=== PATIENT | female | born 1950 | race Caucasian/White ===

== ENCOUNTER 2020-08-09 10:32 | Emergency (ER) | payer MEDICARE, OTHER, SELFPAY ==
--- NOTE | 2020-08-09 10:41 | ED.EXTPRO ---
HPI - Extremity Problem General Chief complaint: Extremity Problem,Nontraumatic Stated complaint: right wrist pain Time Seen by Provider: 08/09/20 10:51 Source: patient and RN notes reviewed Mode of arrival: ambulatory Limitations: no limitations History of Present Illness HPI Narrative: 70-year-old female presents with concern for right wrist pain. Reports pain and some swelling for 3 to 4 days. Reports she had a similar instance approximately 2 months ago and symptoms improved without intervention. Reports she took one ibuprofen tablet yesterday that improved the swelling and pain. She denies injury, trauma. Denies bruising, redness. MD Complaint: extremity pain Related Data Home Medications Medication Instructions Recorded Confirmed lisinopril 10 mg tablet 10 mg PO DAILY 05/19/20 08/09/20 omega-3 fatty acids 1,000 mg 1,000 mg PO DAILY 05/19/20 08/09/20 capsule vitamin B complex 1 tablet PO DAILY 05/19/20 08/09/20 Allergies Allergy/AdvReac Type Severity Reaction Status Date / Time No Known Allergies Allergy Verified 08/09/20 10:36 Review of Systems Review of Systems: Narrative: CONSTITUTIONAL: Denies malaise, chills, sweats, or fever. CARDIOVASCULAR: Denies chest pain, palpitations, or edema. RESPIRATORY: Denies cough or dyspnea. SKIN: Denies bruising, redness MUSCULOSKELETAL: Reports right wrist pain, swelling. Reports right decreased bit sander strength NEUROLOGIC: Denies numbness All systems reviewed & are unremarkable except as noted in HPI and below PMFSH Family History Family History (Updated 07/29/14 @ 07:13 by DOCTOR UNKNOWN) Father Hypertension Patient's father is Mother Hypertension Sibling Hypertension Family history of coronary artery disease Social History Social History Second hand tobacco smoke exposure: No Alcohol intake: never Gender identity (if verbalized by the patient): Female Comments At time of signature, agree with nursing past medical, surgical, social and family history. There is no relevant family history pertinent to the presenting complaint Exam Narrative: Exam Narrative: GENERAL: Well-appearing, well-nourished, and in no acute distress. HEAD: Normocephalic, atraumatic. EYES: PERRLA, conjunctivae clear NECK: Supple. CHEST: Speaks in full sentences. No respiratory distress. HEART: Regular rate and rhythm. Normal and equal peripheral pulses. EXTREMITIES: Right wrist, digits have normal strength and sensation, normal range of motion. No edema or ecchymosis. 5/5 strength with wrist and digit flexion and extension. Normal sensation with sensitivity to light touch and pain. No open wounds, no skin tenting, no devitalized tissue or atrophy, no trophic changes, no obvious deformity, alignment normal, no point tenderness, nearby joints and structures intact. Distal pulses palpable and equal bilaterally, skin warm, dry, pink. Capillary refill less than 3 seconds. SKIN: Warm, dry, no rash. NEURO: Alert and oriented x3. PSYCH: Normal mood and affect Course Course Emergency Course: Patient is aware of diagnosis, understands and agrees to treatment plan. Anticipatory guidance given. Patient agrees to follow-up as directed and is aware of reasons to seek care at the emergency department. Portions of this record may have been created with voice recognition software Vital Signs Vital signs: Vital Signs Temperature 99.1 F 08/09/20 10:51 Pulse Rate 87 08/09/20 10:51 Respiratory Rate 16 08/09/20 10:51 Blood Pressure 122/68 08/09/20 10:51 Pulse Oximetry 98 08/09/20 10:51 Temperature 99.1 F 08/09/20 10:51 Pulse Rate 87 08/09/20 10:51 Respiratory Rate 16 08/09/20 10:51 Blood Pressure 122/68 08/09/20 10:51 Pulse Oximetry 98 08/09/20 10:51 Reviewed. MDM - Extremity (Nontraumatic) MDM Narrative Medical decision making narrative: Patients or pain is consistent with musculoskeletal etiology. No signs of neurologic
[2020-08-09 10:51] VITALS: BP 122/68; PULSE 87; RESP 16; TEMP 37.3; O2SAT 98
== END 2020-08-09 11:10 | disposition home or self-care (01) ==
PROVIDERS: Emergency Provider Nurse Practitioner; PCP Internal Medicine
DX: M77.9 Enthesopathy, unspecified (principal); E78.00 Pure hypercholesterolemia, unspecified; I10 Essential (primary) hypertension; E89.0 Postprocedural hypothyroidism
CPT/HCPCS: 99212; G0463

== ENCOUNTER 2023-01-21 13:58 | Outpatient (CLI) | payer MEDICARE, OTHER, SELFPAY ==
--- NOTE | ~2023-01-21 | US_ITS ---
EXAMINATION: US art doppler w press PATRICK BELL DATE: 01/21/2023 15:57 INDICATION: Peripheral vascular disease, unspecified. TECHNIQUE: Segmental pressures and plethysmographic and Doppler waveforms of the brachial and lower e xtremity arteries were obtained. COMPARISON: None. FINDINGS: Right and left brachial artery pressures of 94 mm Hg and 80 mm Hg, respectively, are concordant (norm al difference <= 30 mmHg). The right high-thigh pressure index is 0.68 (normal > 1.2). The right ankle-brachial index (LAUREN) is 0 .69 (normal >= 0.9-1.0). The right great toe-brachial index (TBI) is 1.32 (normal >= 0.65). The right lower extremity segmental pressure gradients (normal gradients <= 20-30 mmHg between adjacent levels on the same leg or the same levels on the two legs). Arterial Doppler waveforms are biphasic from co mmon femoral artery to the ankle. The left high-thigh pressure index is 0.61. The left LAUREN is 0.71. The left TBI is 0.20. The left lowe r extremity segmental pressure gradients are normal. Arterial Doppler waveforms are biphasic from com mon femoral artery to the ankle. IMPRESSION: 1. Moderately decreased ABIs, consistent with arterial occlusive disease, likely predominantly in the aortoiliofemoral distribution. Reviewed, dictated and finalized at location [facility] [employer] IMPRESSION: 1. Moderately decreased ABIs, consistent with arterial occlusive disease, likel y predominantly in the aortoiliofemoral distribution.
== END 2023-01-21 13:59 | disposition home or self-care (01) ==
PROVIDERS: PCP Internal Medicine; Visit Provider Internal Medicine
DX: I73.9 Peripheral vascular disease, unspecified (principal)
CPT/HCPCS: 93923

== ENCOUNTER 2025-05-26 21:55 | Inpatient (IN) | payer MEDICARE, OTHER, SELFPAY ==
--- NOTE | ~2025-05-26 | CT_ITS ---
CT of the Abdomen and Pelvis: Indication: Abdominal pain Technique: 2.5 mm axial scans were obtained through the abdomen and pelvis following intravenous adm inistration of 100 cc of Omnipaque 350. Dose reduction technique was used on this scan by utilizing a utomated exposure control and iterative reconstruction technique. The dose-length product (DLP) was 3 56.57 mGy-cm. Findings: Scans through the lung bases are unremarkable. The liver, spleen, pancreas, gallbladder, adrenals and kidneys are within normal limits. There are at herosclerotic calcifications of the aorta. No lymphadenopathy. No bowel obstruction or bowel wall thickening. There is no evidence to suggest acute appendicitis. Images through the pelvis were performed. Urinary bladder unremarkable. No pelvic mass seen. No ascit es. Impression: No significant abnormalities seen. Reviewed, dictated and finalized at [facility]. Impression: No significant abnormalities seen.
[2025-05-26 22:18] VITALS: BP 107/47; PULSE 71; RESP 16; TEMP 36.6; O2SAT 96
[2025-05-27] VITALS (28 sets, daily range): BP systolic 107–155; BP diastolic 49–75; PULSE 57–83; RESP 10–20; TEMP 36.4–36.6; O2SAT 91–100; BMI 20.8
--- NOTE | 2025-05-27 00:30 | ED_ITS ---
HPI - Nausea/Vomiting/Diarrhea General Chief complaint: Nausea/Vomiting/Diarrhea <Meryl De Paz PA-C - Last Filed: 05/27/25 03:01> Stated complaint: n/v/d <Meryl De Paz PA-C - Last Filed: 05/27/25 03:01> Time Seen by Provider: 05/27/25 00:18 <Meryl De Paz PA-C - Last Filed: 05/27/25 03:01> History of Present Illness HPI Narrative: 74-year-old female with history of hyperlipidemia, hypothyroidism, hypertension presents to the emergency department for nausea, vomiting and diarrhea that started at 2:00 p.m. today. Patient states she was eating a roast beef sandwich and took a few bites when she began projectile vomiting followed by several episodes of diarrhea. She has been having difficulty eating and hydrating since. She reports intermittent sharp abdominal pains in her periumbilical region. She denies dysuria, hematuria, fevers, chest pain or shortness of breath. Denies melena, hematochezia, hematemesis or coffee-ground emesis. Denies recent antibiotic use, recent surgeries or hospitalizations, recent sick contacts, recent travel. <Meryl De Paz PA-C - Last Filed: 05/27/25 03:01> Related Data Allergies/Adverse reactions: Allergies Allergy/AdvReac Type Severity Reaction Status Date / Time No Known Allergies Allergy Verified 05/26/25 22:21 <Meryl De Paz PA-C - Last Filed: 05/27/25 03:01> Review of Systems 2 Review of Systems: All systems reviewed & are unremarkable except as noted in HPI and below <Meryl De Paz PA-C - Last Filed: 05/27/25 03:01> FOR[facility]LY [facility], [facility] Past Medical History Medical History: Medical History BMI 21.0-21.9, adult Pure hypercholesterolemia, unspecified Pure hypercholesterolemia Other fatigue Gastro-esophageal reflux disease without esophagitis Dietary counseling and surveillance (02/27/17) Cough Chronic pain of right knee Cellulitis of face Annual physical exam <Meryl De Paz PA-C - Last Filed: 05/27/25 03:01> Family History Family History: Family History Father Hypertension Mother Hypertension Sibling Hypertension Family history of coronary artery disease <Meryl De Paz PA-C - Last Filed: 05/27/25 03:01> Social History Social History: Social History Smoking status: Current every day smoker Second hand tobacco smoke exposure: Yes Alcohol intake: never Substance use: never Substance use type: does not use Do You Feel Safe in your Home?: Yes Lack of Transportation: No Lack of Food: Never True Current Housing: I Have Housing Concerned About Future Housing: No Difficulty Paying Gas/Electric Bills: No Difficulty Paying for Meds: No Currently Unemployed: No Education: High School Diploma/GED Difficulty w/ Childcare or Family Care: No Living arrangements: alone Occupation/Education: retired Additional occupation/education comments: [employer] Gender identity (if verbalized by the patient): Female <Meryl De Paz PA-C - Last Filed: 05/27/25 03:01> Exam 2 Narrative: GENERAL: Well-appearing, well-nourished, and in no acute distress. HEAD: Normocephalic, atraumatic. EYES: EOMI. ENT: Nares clear, no rhinorrhea or epistaxis. Mucous membranes dry NECK: Supple. CHEST: Clear to auscultation. No respiratory distress. HEART: Regular rate and rhythm. No murmur heard. Normal peripheral pulses. ABDOMEN: Quiet bowel sounds. Abdomen soft with mild tenderness in the left lower quadrant. No rebound, guarding or rigidity. No CVA tenderness EXTREMITIES: Normal range of motion. No edema. SKIN: Warm, dry, no rash. NEURO: No focal deficits. Alert and oriented x3 <Meryl De Paz PA-C - Last Filed: 05/27/25 03:01> Course Vital Signs Vital signs: Vital Signs Temperature 98 F 05/26/25 22:18 Pulse Rate 71 05/26/25 22:18 Respiratory Rate 16 05/26/25 22:18 Blood Pressure 107/47 L 05/26/25 22:18 Pulse Oximetry 96 05/26/25 22:18 Oxygen Delivery Room Air 05/26/25 22:18 Temperature 98 F 05/26/25 22:18 Pulse Rate 69 05/27/25 04:45 Respiratory Rate 14 05/27/25 04:45 Blood Pressure 109/51 L 05/27/25 04:45 Pulse Oximetry 93 05/27/25 04:45 Oxygen Delivery Room Air 05/27/25 00:29 <Meryl De Paz PA-C - Last Filed: 05/27/25 03:01> Vital Signs Temperature 98 F 05/26/25 22:18 Pulse Rate 71 05/26/25 22:18 Respiratory Rate 16 05/26/25 22:18 Blood Pressure 107/47 L 05/26/25 22:18 Pulse Oximetry 96 05/26/25 22:18 Oxygen Delivery Room Air 05/26/25 22:18 Temperature 98 F 05/26/25 22:18 Pulse Rate 69 05/27/25 04:45 Respiratory Rate 14 05/27/25 04:45 Blood Pressure 109/51 L 05/27/25 04:45 Pulse Oximetry 93 05/27/25 04:45 Oxygen Delivery Room Air 05/27/25 00:29 <Chaim Kincaid MD - Last Filed: 05/27/25 04:56> MDM - Nausea/Vomiting/Diarrhea MDM Narrative Medical decision making narrative: 74-year-old female presents emergency department for N/V/D that started at 2:00 p.m. today after eating a roast beef sandwich. See HPI for further history. Vitals with soft blood pressure 107/47, patient is dry appearing on exam. Fluids started. Patient is afebrile and nontoxic appearing. Abdomen is soft with mild tenderness in the left lower quadrant. No rebound or rigidity. CBC shows no leukocytosis or anemia. Chemistries remarkable for signs of dehydration including hyponatremia 125, hyperkalemia 5.3, hypochloremia of 94, bicarb of 20 with normal anion gap, BUN of 18 creatinine 1.01. Patient was given 2 L of fluids. Lactic acid is within normal limits. Lipase is normal. Pending CT abdomen pelvis at time of sign-out to Dr. Kincaid. Plans for admission for IV hydration and management of electrolyte derangements. <Meryl De Paz PA-C - Last Filed: 05/27/25 03:01> 74-year-old female presents emergency department for N/V/D that started at 2:00 p.m. today after eating a roast beef sandwich. See HPI for further history. Vitals with soft blood pressure 107/47, patient is dry appearing on exam. Fluids started. Patient is afebrile and nontoxic appearing. Abdomen is soft with mild tenderness in the left lower quadrant. No rebound or rigidity. CBC shows no leukocytosis or anemia. Chemistries remarkable for signs of dehydration including hyponatremia 125, hyperkalemia 5.3, hypochloremia of 94, bicarb of 20 with normal anion gap, BUN of 18 creatinine 1.01. Patient was given 2 L of fluids. Lactic acid is within normal limits. Lipase is normal. Pending CT abdomen pelvis at time of sign-out to Dr. Kincaid. Plans for admission for IV hydration and management of electrolyte derangements. --- CT scan showed evidence diverticulosis without diverticulitis. Case discussed with hospitalist. Patient will be admitted for IV antibiotics for urinary tract infection rehydration and following of her hyponatremia and hyperkalemia <Chaim Kincaid MD - Last Filed: 05/27/25 04:56> Lab Data Result diagrams: 05/27/25 00:44 05/27/25 00:44 <Meryl De Paz PA-C - Last Filed: 05/27/25 03:01> Labs: Lab Results 05/27/25 05/27/25 05/27/25 Range/Units 00:44 02:17 02:19 WBC 9.7 (4.5-10.0) K/mm3 RBC 4.54 (4.2-5.4) M/mm3 Hgb 13.5 (12.0-15.0) g/dL Hct 41.0 (37.0-47.0) % MCV 90.3 (80-100) fl MCH 29.7 (26-34) pg MCHC 32.9 (32-36) g/dl RDW 12.7 (11.5-14.5) % Plt Count 230 (150-375) k/mm3 MPV 9.1 (7.4-10.4) fl Immature Gran % (Auto) 1.5 H (0-0.5) % Neut % (Auto) 88.2 H (45.5-73.1) % Lymph % (Auto) 4.4 L (18.3-44.2) % Cloud % (Auto) 5.0 (2.6-8.5) % Eos % (Auto) 0.7 (0-4.4) % Baso % (Auto) 0.2 (0.2-1.2) % Lymph # (Auto) 0.43 L (0.9-3.2) K/mm3 Cloud # (Auto) 0.5 (0.1-0.6) K/mm3 Eos # (Auto) 0.1 (0-0.3) K/mm3 Baso # (Auto) 0.0 (0.0-0.1) K/mm3 Abs Immat Gran (auto) 0.15 H (0.00-0.031) K/mm3 Absolute Neuts (auto) 8.6 H (1.3-6.7) K/mm3 Absolute Nucleated RBC 0.000 (0.0-0.012) K/mm3 Nucleated RBC % 0.0 (0.0-0.2) % Sodium 125 L (137-145) mmol/L Potassium 5.3 H (3.4-5.0) mmol/L Chloride 94 L (98-107) mmol/L Carbon Dioxide 20 L (22-30) mmol/L Anion Gap 11 (4-12) mmol/L BUN 18 H (7-17) mg/dL Creatinine 1.01 H (0.7-1.0) mg/dL Estim Creat Clear Calc Not Reportable Estimated GFR 53 L (59 - ) Glucose 135 H (65-110) mg/dL Lactic Acid 1.2 (0.7-2.0) mmol/L Calcium 9.4 (8.4-10.2) mg/dL Total Bilirubin 1.1 (0.2-1.3) mg/dL AST 46 H (14-36) U/L ALT 29 (6-35) U/L Alkaline Phosphatase 83 (38-126) U/L Total Protein 7.7 (6.3-8.2) g/dL Albumin 4.4 (3.5-5.1) g/dL Lipase 107 (23-300) U/L Urine Color Yellow (Yellow) Urine Appearance Cloudy H (Clear) Urine pH 7.0 (5.0-9.0) Ur Specific [place] 1.015 (1.001-1.035) Urine Protein Trace (Negative) mg/dL Urine Glucose (UA) Negative (Negative) mg/dL Urine Ketones Negative (Negative) mg/dL Ur Blood (Man) Negative (Negative) Urine Nitrate Positive H (Negative) Urine Bilirubin Negative (Negative) Urine Urobilinogen 0.2 (<2.0) mg/dL Add Ur Microanalysis Reviewed Leukocyte Esterase Rfl 3+ H (Negative) JEWELS/UL Urine RBC 6-10 H (0-2) /hpf Urine WBC 21-50 H (0-3) /hpf Ur Squamous Epith Cells Few (Few) /hpf Urine Bacteria 4+ /hpf Urine Casts 0-2 <Meryl De Paz PA-C - Last Filed: 05/27/25 03:01> Lab Results 05/27/25 05/27/25 05/27/25 Range/Units 00:44 02:17 02:19 WBC 9.7 (4.5-10.0) K/mm3 RBC 4.54 (4.2-5.4) M/mm3 Hgb 13.5 (12.0-15.0) g/dL Hct 41.0 (37.0-47.0) % MCV 90.3 (80-100) fl MCH 29.7 (26-34) pg MCHC 32.9 (32-36) g/dl RDW 12.7 (11.5-14.5) % Plt Count 230 (150-375) k/mm3 MPV 9.1 (7.4-10.4) fl Immature Gran % (Auto) 1.5 H (0-0.5) % Neut % (Auto) 88.2 H (45.5-73.1) % Lymph % (Auto) 4.4 L (18.3-44.2) % Cloud % (Auto) 5.0 (2.6-8.5) % Eos % (Auto) 0.7 (0-4.4) % Baso % (Auto) 0.2 (0.2-1.2) % Lymph # (Auto) 0.43 L (0.9-3.2) K/mm3 Cloud # (Auto) 0.5 (0.1-0.6) K/mm3 Eos # (Auto) 0.1 (0-0.3) K/mm3 Baso # (Auto) 0.0 (0.0-0.1) K/mm3 Abs Immat Gran (auto) 0.15 H (0.00-0.031) K/mm3 Absolute Neuts (auto) 8.6 H (1.3-6.7) K/mm3 Absolute Nucleated RBC 0.000 (0.0-0.012) K/mm3 Nucleated RBC % 0.0 (0.0-0.2) % Sodium 125 L (137-145) mmol/L Potassium 5.3 H (3.4-5.0) mmol/L Chloride 94 L (98-107) mmol/L Carbon Dioxide 20 L (22-30) mmol/L Anion Gap 11 (4-12) mmol/L BUN 18 H (7-17) mg/dL Creatinine 1.01 H (0.7-1.0) mg/dL Estim Creat Clear Calc Not Reportable Estimated GFR 53 L (59 - ) Glucose 135 H (65-110) mg/dL Lactic Acid 1.2 (0.7-2.0) mmol/L Calcium 9.4 (8.4-10.2) mg/dL Total Bilirubin 1.1 (0.2-1.3) mg/dL AST 46 H (14-36) U/L ALT 29 (6-35) U/L Alkaline Phosphatase 83 (38-126) U/L Total Protein 7.7 (6.3-8.2) g/dL Albumin 4.4 (3.5-5.1) g/dL Lipase 107 (23-300) U/L Urine Color Yellow (Yellow) Urine Appearance Cloudy H (Clear) Urine pH 7.0 (5.0-9.0) Ur Specific [place] 1.015 (1.001-1.035) Urine Protein Trace (Negative) mg/dL Urine Glucose (UA) Negative (Negative) mg/dL Urine Ketones Negative (Negative) mg/dL Ur Blood (Man) Negative (Negative) Urine Nitrate Positive H (Negative) Urine Bilirubin Negative (Negative) Urine Urobilinogen 0.2 (<2.0) mg/dL Add Ur Microanalysis Reviewed Leukocyte Esterase Rfl 3+ H (Negative) JEWELS/UL Urine RBC 6-10 H (0-2) /hpf Urine WBC 21-50 H (0-3) /hpf Ur Squamous Epith Cells Few (Few) /hpf Urine Bacteria 4+ /hpf Urine Casts 0-2 <Chaim Kincaid MD - Last Filed: 05/27/25 04:56> Discharge Plan Discharge Clinical Impression: Dehydration, Acute hyponatremia, Acute hyperkalemia, Acute UTI, Nausea & vomiting <Meryl De Paz PA-C - Last Filed: 05/27/25 03:01> Patient Disposition: Still a Patient <JIMBO Dale Last Filed: 05/27/25 03:01> Condition: Stable <JIMBO Dale Last Filed: 05/27/25 03:01> Patient Language: Japanese <JIMBO Dale Last Filed: 05/27/25 03:01> Prescriptions: No Action rosuvastatin 20 mg tablet 20 mg PO DAILY Qty: 90 3RF lisinopril 20 mg tablet 20 mg PO DAILY Qty: 90 3RF glucose 4 gram tablet,chewable 4 g PO Q15M PRN (Reason: hypoglycemia) Qty: 30 2RF Rx Instructions: until symptoms of low blood sugar are controlled levothyroxine [Levo-T] 50 mcg tablet 50 mcg PO DAILY Qty: 90 2RF <JIMBO Dale Last Filed: 05/27/25 03:01> Follow-up/Referrals: UNKNOWN,DOCTOR [Non-Staff] - <JIMBO Dale Last Filed: 05/27/25 03:01>
[2025-05-27] MEDS: ONDANSETRON INJ 4 MG/2 ML VIAL IV PUSH (00:47)
[2025-05-27] MEDS: SODIUM CHLORIDE 0.9% IV 1,000 ML 999 ML IV CONT ×2 (00:47→01:17)
[2025-05-27] MEDS: FAMOTIDINE 20 MG/2 ML VIAL IV PUSH (00:48)
[2025-05-27 01:00] LABS: Basophils Percent Auto 0.2 % (0.2-1.2); Eosinophils Absolute Auto 0.1 K/mm3 (0-0.3); Eosinophils Percent Auto 0.7 % (0-4.4); Hemoglobin 13.5 g/dL (12.0-15.0); Immature Granulocyte Absolute 0.15 K/mm3 (0.00-0.031); Immature Granulocyte Percent A 1.5 % (0-0.5); Lymphocytes Absolute Auto 0.43 K/mm3 (0.9-3.2); Lymphocytes Percent Auto 4.4 % (18.3-44.2); Mean Corpuscular HGB Conc 32.9 g/dl (32-36); Mean Corpuscular Hemoglobin 29.7 pg (26-34); Mean Corpuscular Volume 90.3 fl (80-100); Mean Platelet Volume 9.1 fl (7.4-10.4); Monocytes Absolute Auto 0.5 K/mm3 (0.1-0.6); Neutrophils Absolute Auto 8.6 K/mm3 (1.3-6.7); Neutrophils Percent Auto 88.2 % (45.5-73.1); Platelet Count Result 230 k/mm3 (150-375); Red Blood Count 4.54 M/mm3 (4.2-5.4); Red Cell Distribution Width 12.7 % (11.5-14.5); White Blood Count 9.7 K/mm3 (4.5-10.0)
[2025-05-27 01:05] LABS: Alanine Aminotransferase 29 U/L (6-35); Albumin Level 4.4 g/dL (3.5-5.1); Alkaline Phosphatase 83 U/L (38-126); Anion Gap 11 mmol/L (4-12); Aspartate Amino Transferase 46 U/L (14-36); Bilirubin,Total 1.1 mg/dL (0.2-1.3); Blood Urea Nitrogen 18 mg/dL (7-17); Calcium 9.4 mg/dL (8.4-10.2); Carbon Dioxide 20 mmol/L (22-30); Chloride 94 mmol/L (98-107); Estimated Glomerular Filt Rate 53; Glucose 135 mg/dL (65-110); Lipase 107 U/L (23-300); Potassium 5.3 mmol/L (3.4-5.0); Sodium 125 mmol/L (137-145); Total Protein 7.7 g/dL (6.3-8.2)
[2025-05-27 02:33] LABS: Lactic Acid Reflex 1.2 mmol/L (0.7-2.0)
[2025-05-27 02:51] LABS: Add Urine Microscopic? YES; Appearance Urine Cloudy (Clear); Bacteria Urine 4+ /hpf; Bilirubin Urine Negative (Negative); Blood Urine Negative (Negative); Color Urine Yellow (Yellow); Glucose Urine UA Negative (Negative); Ketones Urine Negative (Negative); Leukocyte Esterase Ur 3+ LEU/UL (Negative); Need Manual Microscopic Reviewed; Nitrate Urine Positive (Negative); Non Pathogenic Casts 0-2; Protein Urine Trace mg/dL (Negative); Specific Grav Ur 1.015 (1.001-1.035); Squamous Epithelial Cell Urine Few /hpf (Few); Urobilinogen Urine 0.2 mg/dL (<2.0); WBC Urine 21-50 /hpf (0-3)
--- NOTE | 2025-05-27 03:30 | PC.NURSE ---
This RN and Kailyn both attempted to get blood cultures on pt. Both were unsuccessful at this time. abrasive coating machine operator notified and called phelobotmy at this time. Phelobotomy states it will be awhile before they get to pt due to morning rounds.
--- NOTE | 2025-05-27 05:36 | PC.NURSE ---
Attempted to obtain cultures x 2. Only able to obtain x1 at this time. Will discuss with hospitalist.
--- NOTE | 2025-05-27 05:40 | PC.NURSE ---
OK per Dr Kincaid to give abx despite only having 1 set of cultures.
[2025-05-27] MEDS: LACTATED RINGERS 1,000 ML 125 ML IV CONT (06:00)
--- NOTE | 2025-05-27 06:02 | PC.NURSE ---
Per MD plaza, we do not need secon set of blood cultures before we started IV antibiotics. Charge Precious sent down one set and per MD Plaza one set is enough.
--- NOTE | 2025-05-27 14:22 | P.HP_ITS ---
H&P: HPI History of Present Illness Date/Time: 05/27/25 14:22 Chief Complaint: intractable vomiting Narrative: 74 year old lady went out yesterday for roast beef cheese sandwich at [email or web address] was later eating some lays chips when she started projectile vomiting and diarrhea started later tried spring water did not help vomited almost 8 times so came into ed ct abdomen pelvis was negative for acute pathology ua is positive pt does mention urinary frequency pt feels better with fluids Review of Systems Review of Systems: intractable projectile vomiting and diarrhea loose watery positive for urinary frequency no abdominal pains or fever all other 12 systems reviewed and negative apart from those in hpi PMFSH Past Medical History Medical History BMI 21.0-21.9, adult Pure hypercholesterolemia, unspecified Pure hypercholesterolemia Other fatigue Gastro-esophageal reflux disease without esophagitis Dietary counseling and surveillance (02/27/17) Cough Chronic pain of right knee Cellulitis of face Annual physical exam Family History Family History Father Hypertension Mother Hypertension Sibling Hypertension Family history of coronary artery disease Social History Social History Smoking packs per day: 1 Smoking cigarettes per day: 20.0 Smoking status: Current every day smoker Tobacco type: cigarettes Second hand tobacco smoke exposure: Yes Alcohol intake: never Substance use: never Substance use type: does not use Do You Feel Safe in your Home?: Yes Lack of Transportation: No Lack of Food: Never True Current Housing: I Have Housing Concerned About Future Housing: No Difficulty Paying Gas/Electric Bills: No Difficulty Paying for Meds: No Currently Unemployed: No Education: High School Diploma/GED Difficulty w/ Childcare or Family Care: No Living arrangements: alone Occupation/Education: retired Additional occupation/education comments: [employer] Gender identity (if verbalized by the patient): Female Spiritual care concerns: No Meds Home Medications and Allergies Home Medications ?Medication ?Instructions ?Recorded ?Confirmed ?Type rosuvastatin 20 mg tablet 20 mg PO DAILY #90 tabs 09/21/24 05/27/25 Rx lisinopril 20 mg tablet 20 mg PO DAILY #90 tabs 03/04/25 05/27/25 Rx levothyroxine 50 mcg tablet 50 mcg PO DAILY #90 tabs 03/29/25 05/27/25 Rx (Levo-T) Allergies Allergy/AdvReac Type Severity Reaction Status Date / Time No Known Allergies Allergy Verified 05/26/25 22:21 Vital Signs Vital Signs - 24 hr 05/26/25 22:18 05/27/25 00:29 05/27/25 02:27 Temperature 36.6 C Pulse Rate 71 71 82 Respiratory Rate 16 17 15 Blood Pressure 107/47 L 143/73 H 118/67 Pulse Oximetry 96 100 98 Oxygen Delivery Room Air Room Air 05/27/25 02:31 05/27/25 02:45 05/27/25 03:00 Temperature Pulse Rate 83 77 77 Respiratory Rate 20 13 15 Blood Pressure 121/70 120/49 L 130/51 L Pulse Oximetry 98 95 99 Oxygen Delivery 05/27/25 03:16 05/27/25 03:31 05/27/25 03:45 Temperature Pulse Rate 78 77 74 Respiratory Rate 15 16 14 Blood Pressure 137/54 L 131/59 L 117/61 Pulse Oximetry 96 97 95 Oxygen Delivery 05/27/25 04:00 05/27/25 04:15 05/27/25 04:30 Temperature Pulse Rate 77 74 70 Respiratory Rate 15 15 14 Blood Pressure 130/56 L 136/52 L 107/51 L Pulse Oximetry 96 91 92 Oxygen Delivery 05/27/25 04:45 05/27/25 05:00 05/27/25 05:15 Temperature Pulse Rate 69 80 75 Respiratory Rate 14 10 L 12 Blood Pressure 109/51 L 128/68 142/62 H Pulse Oximetry 93 99 95 Oxygen Delivery 05/27/25 05:42 05/27/25 05:45 05/27/25 06:00 Temperature Pulse Rate 68 71 79 Respiratory Rate 14 10 L 14 Blood Pressure 155/67 H Pulse Oximetry 98 97 Oxygen Delivery 05/27/25 07:22 05/27/25 08:01 05/27/25 09:00 Temperature Pulse Rate 70 68 69 Respiratory Rate 13 15 13 Blood Pressure 129/70 146/65 H 134/65 Pulse Oximetry Oxygen Delivery 05/27/25 10:00 05/27/25 11:01 05/27/25 13:24 Temperature Pulse Rate 66 62 69 Respiratory Rate 13 14 19 Blood Pressure 151/51 H 129/70 145/75 H Pulse Oximetry 98 100 Oxygen Delivery Exam Const: General: cooperative, healthy appearing and overweight; No in distress Nutritional Appearance: overweight Orientation/consciousness: oriented to person HENMT: Head: normal to inspection Resp: Effort & Inspection: no respiratory distress Auscultation: no rhonchi and no wheezes Cardio: Rate: regular rate Rhythm: regular rhythm GI: Inspection: normal to inspection GI Palp: No abdominal tenderness, No Guarding due to palpation present (GI) and No Hepatomegaly present Auscultation: normal bowel sounds Neuro: General: oriented to person H&P: Results Labs Labs: Short CBC 05/27/25 Range/Units 00:44 WBC 9.7 (4.5-10.0) K/mm3 Hgb 13.5 (12.0-15.0) g/dL Hct 41.0 (37.0-47.0) % Plt Count 230 (150-375) k/mm3 [facility] 05/27/25 00:44 Sodium 125 L Potassium 5.3 H Chloride 94 L Carbon Dioxide 20 L BUN 18 H Creatinine 1.01 H Glucose 135 H Calcium 9.4 Liver Function 05/27/25 Range/Units 00:44 Total Bilirubin 1.1 (0.2-1.3) mg/dL AST 46 H (14-36) U/L ALT 29 (6-35) U/L Alkaline Phosphatase 83 (38-126) U/L Albumin 4.4 (3.5-5.1) g/dL Urine 05/27/25 Range/Units 02:19 Urine Color Yellow (Yellow) Urine Appearance Cloudy H (Clear) Urine pH 7.0 (5.0-9.0) Ur Specific [place] 1.015 (1.001-1.035) Urine Protein Trace (Negative) mg/dL Urine Glucose (UA) Negative (Negative) mg/dL Assessment and Plan Assessment and plan (1) Nausea & vomiting: Code(s): R11.2 - Nausea with vomiting, unspecified Status: Acute Assessment and Plan: fluid hydration watch bmp zofran prn nausea (2) Dehydration: Code(s): E86.0 - Dehydration Status: Acute Assessment and Plan: continue ns fluid hydration pt having diarrhea imodium ordered stool culture pending (3) Acute hyponatremia: Code(s): E87.1 - Hypo-osmolality and hyponatremia Status: Acute Assessment and Plan: watch sodium levels presently 132 continue iv fluid hydration rate decreased to 70 cc per hour (4) Acute hyperkalemia: Code(s): E87.5 - Hyperkalemia Status: Acute Assessment and Plan: pt to have lokelma for hyperkaelemia watch bmp (5) Acute UTI: Code(s): N39.0 - Urinary tract infection, site not specified Status: Acute Assessment and Plan: ua is positive await uc wcc is nl continue iv rocephin (6) Essential (primary) hypertension: Code(s): I10 - Essential (primary) hypertension Status: Acute Assessment and Plan: continue lisinopril daily Plan hypothyoidism continue synthyroid hld continue statin tobacco abuse order nicotine patch full code dvt prop lovenox Hospitalist MIPS Advance Care Plan I have confirmed that the patient's Advanced Care Plan is present, code status is documented, or surrogate decision maker is listed in patient medical record.: Yes Medication Reconciliation I have utilized all available resources to obtain, update and review the patients current medications (includes all prescriptions, OTC, herbals, cannabis, and nutritional supplements).: Yes The patient is not eligible for med reconciliation; the patient is in a emergent medical situation where delaying treatment would jeopardize the patients health.: Yes
[2025-05-27] MEDS: SODIUM CHLORIDE 0.9% IV 1,000 ML 70 ML IV CONT (15:05)
--- NOTE | 2025-05-27 15:26 | ADMGEN ---
This patient, Bereniec Whalen, was admitted to Medical Room 261-01. Patient/family oriented to hospital policies and general routines including ID bracelet, bed and alarms, visiting hours, pain management, procedures, bathroom and other care routines, personal items, smoking policy, room service/diet, and visiting hours. Information on how to activate the Rapid Response Team has been discussed. Patient/Family are encouraged to report perceived risks to care and to ask questions if they do not understand what they are told or what they should do.
[2025-05-27] MEDS: SODIUM ZIRCONIUM CYCLOSILICATE 5 GM POWD.PACK PO (16:11)
[2025-05-27 17:19] LABS: Anion Gap 8 mmol/L (4-12); Blood Urea Nitrogen 12 mg/dL (7-17); Calcium 8.8 mg/dL (8.4-10.2); Carbon Dioxide 23 mmol/L (22-30); Chloride 101 mmol/L (98-107); Estimated CRCL calculation 41 ml/min; Estimated Glomerular Filt Rate 59; Glucose 100 mg/dL (65-110); Potassium 3.6 mmol/L (3.4-5.0); Sodium 132 mmol/L (137-145)
[2025-05-28] VITALS: PULSE 58
[2025-05-28 04:00] VITALS: PULSE 59
[2025-05-28 04:25] VITALS: BP 122/40; PULSE 56; RESP 18; TEMP 36.2; O2SAT 94
[2025-05-28] MEDS: SODIUM CHLORIDE 0.9% IV 1,000 ML 70 ML IV CONT (06:02)
[2025-05-28] MEDS: LEVOTHYROXINE SODIUM 50 MCG TABLET PO (06:03)
[2025-05-28 06:47] LABS: Anion Gap 6 mmol/L (4-12); Blood Urea Nitrogen 9 mg/dL (7-17); Calcium 8.4 mg/dL (8.4-10.2); Carbon Dioxide 20 mmol/L (22-30); Chloride 107 mmol/L (98-107); Estimated CRCL calculation 47 ml/min; Estimated Glomerular Filt Rate > 60; Glucose 79 mg/dL (65-110); Magnesium 2.2 mg/dL (1.6-2.3); Potassium 3.4 mmol/L (3.4-5.0); Sodium 133 mmol/L (137-145)
--- NOTE | 2025-05-28 07:41 | P.PNIM_ITS ---
Progress Note: A&P Assessment and Plan (1) Dehydration: Code(s): E86.0 - Dehydration Status: Acute Plan (1) Nausea & vomiting: Code(s): R11.2 - Nausea with vomiting, unspecified Status: Acute Assessment and Plan: fluid hydration watch bmp zofran prn nausea Resolved (2) Dehydration: Code(s): E86.0 - Dehydration Status: Acute Assessment and Plan: continue ns fluid hydration pt having diarrhea imodium ordered stool culture pending Corrected (3) Acute hyponatremia: Code(s): E87.1 - Hypo-osmolality and hyponatremia Status: Acute Assessment and Plan: watch sodium 133 Discontinue IV fluid (4) Acute hyperkalemia: Code(s): E87.5 - Hyperkalemia Status: Acute Assessment and Plan: Received lokelma for hyperkaelemia Corrected (5) Acute UTI: Code(s): N39.0 - Urinary tract infection, site not specified Status: Acute Assessment and Plan: ua is positive await uc wcc is nl continue iv rocephin Pending urine culture (6) Essential (primary) hypertension: Code(s): I10 - Essential (primary) hypertension Status: Acute Assessment and Plan: continue lisinopril daily Plan hypothyoidism continue synthyroid hld continue statin tobacco abuse order nicotine patch full code dvt prop lovenox Subjective Date/time seen: 05/28/25 07:41 Interval history: Patient received fluid resuscitation with lactated Ringer normal saline, blood pressure became stable, patient tolerated diet well, denies nausea vomiting diarrhea. Patient also denies headache, lightheadedness, focal weakness chest pain, shortness a of breath Sodium 133, Exam Narrative: GENERAL: Pleasant, in no acute distress. Well-nourished. - EYES: EOMI. Anicteric. - HENT: Moist mucous membranes. - LUNGS: Clear to auscultation bilateral ly, no wheezing, rhonchi, or rales. - CARDIOVASCULAR: Regular rate and rhyth m. No murmur. No JVD. - ABDOMEN: Soft, non-tender and non-dist ended. No palpable masses. - EXTREMITIES: No edema. Peripheral puls es 2+. Non-tender. - NEUROLOGIC: No focal neurological defi cits. CN II-XII grossly intact. - PSYCHIATRIC: Awake, Alert and oriented x 3. Appropriate mood and affect. - SKIN: No rashes or lesions. Warm. - LYMPH: No cervical lymphadenopathy. Objective Data Vital Signs Vital Signs: Vital Signs - 24 hr 05/27/25 08:01 05/27/25 09:00 05/27/25 10:00 Temperature Pulse Rate 68 69 66 Respiratory Rate 15 13 13 Blood Pressure 146/65 H 134/65 151/51 H Pulse Oximetry Oxygen Delivery 05/27/25 11:01 05/27/25 13:24 05/27/25 15:10 Temperature Pulse Rate 62 69 61 Respiratory Rate 14 19 13 Blood Pressure 129/70 145/75 H 135/59 L Pulse Oximetry 98 100 98 Oxygen Delivery 05/27/25 15:20 05/27/25 15:35 05/27/25 16:00 Temperature 98 F Pulse Rate 67 65 Respiratory Rate 16 Blood Pressure 153/71 H Pulse Oximetry 98 Oxygen Delivery Room Air 05/27/25 20:00 05/27/25 20:59 05/28/25 00:00 Temperature 97.5 F L Pulse Rate 63 57 L 58 L Respiratory Rate 18 Blood Pressure 140/69 Pulse Oximetry 97 Oxygen Delivery 05/28/25 04:00 05/28/25 04:25 Temperature 97.2 F L Pulse Rate 59 L 56 L Respiratory Rate 18 Blood Pressure 122/40 L Pulse Oximetry 94 Oxygen Delivery Intake/Output Intake/Output: Intake & Output 05/25/25 05/26/25 05/27/25 05/28/25 23:59 23:59 23:59 23:59 Intake Total 3630 1350 Output Total 500 600 Balance 3130 750 Meds/Results Medications: Active Medications Generic Name Dose Route Start Last Admin Trade Name Freq PRN Reason Stop Dose Admin Enoxaparin Sodium 40 mg 05/27/25 13:45 05/27/25 15:07 Enoxaparin 40 Mg/0.4 Ml Syringe SUB-Q Not Given DAILY JEWELS Ceftriaxone Sodium 1 gm in 50 mls @ 100 mls/hr 05/28/25 06:00 05/28/25 06:35 Rocephin 1 Gm/Ns 50 Ml IVPB Infused Q24H JEWELS Infusion Sodium Chloride 1,000 mls @ 70 mls/hr 05/27/25 13:35 05/28/25 06:02 Normal Saline Iv IV CONT 70 mls/hr .[id number] JEWELS Administration Levothyroxine Sodium 50 mcg 05/28/25 06:30 05/28/25 06:03 Levothyroxine Sodium 50 Mcg Tablet PO 50 mcg DAILY@0630 [facility] Administration Lisinopril 20 mg 05/28/25 09:00 Lisinopril 20 Mg Tablet PO DAILY [facility] Loperamide HCl 2 mg 05/27/25 13:36 Loperamide Hcl 2 Mg Capsule PO PRN PRN Diarrhea Nicotine 1 patch 05/28/25 09:00 Nicotine (*Jose M) 14 Mg Patch TRANSDERM DAILY [facility] Ondansetron HCl 4 mg 05/27/25 04:47 Ondansetron Inj 4 Mg/2 Ml Vial IV PUSH Q4H PRN Nausea Rosuvastatin Calcium 20 mg 05/28/25 09:00 Rosuvastatin 20 Mg Tablet PO DAILY [facility] Radiology Results: ITS Impressions Abdomen/Pelvis CT 05/27/25 05:17 Impression: No significant abnormalities seen. Labs Labs: Laboratory Results - last 24 hr 05/27/25 05/28/25 16:39 05:38 Sodium 132 L 133 L Potassium 3.6 3.4 Chloride 101 107 Carbon Dioxide 23 20 L Anion Gap 8 6 BUN 12 D 9 Creatinine 0.92 0.79 Estim Creat Clear Calc 41 47 Estimated GFR 59 > 60 Glucose 100 79 Calcium 8.8 8.4 Magnesium 2.2
[2025-05-28 08:00] VITALS: PULSE 58
[2025-05-28 08:23] LABS: Hematocrit 32.6 % (37.0-47.0); Hemoglobin 10.5 g/dL (12.0-15.0); Mean Corpuscular HGB Conc 32.2 g/dl (32-36); Mean Corpuscular Hemoglobin 29.8 pg (26-34); Mean Corpuscular Volume 92.6 fl (80-100); Mean Platelet Volume 9.8 fl (7.4-10.4); Platelet Count Result 189 k/mm3 (150-375); Red Blood Count 3.52 M/mm3 (4.2-5.4); White Blood Count 4.1 K/mm3 (4.5-10.0)
[2025-05-28] MEDS: ROSUVASTATIN 20 MG TABLET PO (09:44)
[2025-05-28] MEDS: lisinopriL 20 MG TABLET PO (09:44)
--- NOTE | 2025-05-28 11:52 | P.DS_ITS ---
DS: Admitting Diagnosis Discharge Date 05/28/25 Admitting Diagnosis Nausea vomiting DS: Discharge Diagnosis Discharge Diagnosis (1) Dehydration: Code(s): E86.0 - Dehydration Status: Acute DS: Summary Hospital Course Hospital Course: Per H&P, 74 year old lady went out yesterday for roast beef cheese sandwich at [employer] was later eating some lays chips when she started projectile vomiting and diarrhea started later tried spring water did not help vomited almost 8 times so came into ed ct abdomen pelvis was negative for acute pathology ua is positive pt does mention urinary frequency The following med issues have been addressed during hospitalization Nausea & vomiting: Code(s): R11.2 - Nausea with vomiting, unspecified Status: Acute Assessment and Plan: fluid hydration watch bmp zofran prn nausea Resolved (2) Dehydration: Code(s): E86.0 - Dehydration Status: Acute Assessment and Plan: continue ns fluid hydration Corrected (3) Acute hyponatremia: Code(s): E87.1 - Hypo-osmolality and hyponatremia Status: Acute Assessment and Plan: watch sodium 133 Discontinue IV fluid Changes sodium chloride 1 g b.i.d. p.o. for 5 more days Follow-up with primary care doctor in 1 week Acute hyperkalemia: Code(s): E87.5 - Hyperkalemia Status: Acute Assessment and Plan: Received lokelma for hyperkaelemia Corrected Acute UTI: Code(s): N39.0 - Urinary tract infection, site not specified Status: Acute Assessment and Plan: ua is positive await [facility] w[facility] is nl Received rocephin Pending urine culture, follow-up per primary care doctor Changed to Augmentin for 3 more days (6) Essential (primary) hypertension: Code(s): I10 - Essential (primary) hypertension Status: Acute Assessment and Plan: Hold lisinopril on discharge, blood pressure on the lower side Resume blood pressure medication per primary care doctor hypothyoidism continue synthyroid Time Spent with Patient Time attestation: Total time spent providing and/or coordinating discharge services: Exam Narrative: GENERAL: Pleasant, in no acute distress. Well-nourished. - EYES: EOMI. Anicteric. - HENT: Moist mucous membranes. - LUNGS: Clear to auscultation bilateral ly, no wheezing, rhonchi, or rales. - CARDIOVASCULAR: Regular rate and rhyth m. No murmur. No JVD. - ABDOMEN: Soft, non-tender and non-dist ended. No palpable masses. - EXTREMITIES: No edema. Peripheral puls es 2+. Non-tender. - NEUROLOGIC: No focal neurological defi cits. CN II-XII grossly intact. - PSYCHIATRIC: Awake, Alert and oriented x 3. Appropriate mood and affect. - SKIN: No rashes or lesions. Warm. - LYMPH: No cervical lymphadenopathy. DS: Data Data Completed and Pending Labs on day of discharge: Labs from last 24 hours 05/28/25 05/28/25 05/27/25 05:38 05:32 16:39 WBC 4.1 L RBC 3.52 L Hgb 10.5 L D Hct 32.6 L MCV 92.6 MCH 29.8 MCHC 32.2 RDW 13.0 Plt Count 189 MPV 9.8 Sodium 133 L 132 L Potassium 3.4 3.6 Chloride 107 101 Carbon Dioxide 20 L 23 Anion Gap 6 8 BUN 9 12 D Creatinine 0.79 0.92 Estim Creat Clear Calc 47 41 Estimated GFR > 60 59 Glucose 79 100 Calcium 8.4 8.8 Magnesium 2.2 Preliminary micro results at discharge 05/27/25 02:19 Urine Culture Reflexed - Preliminary Unspecified Urine Escherichia Coli 05/27/25 07:26 Blood Culture - Preliminary Blood 05/27/25 05:25 Blood Culture - Preliminary Blood Discharge Plan Discharge Attending physician on discharge: Luda Cuba Discharging Clinician: Luda Cuba Anticipated Discharge Date/Time: 05/28/25 11:52 Patient Disposition: Home Activity: as tolerated Diet: as tolerated Patient Instructions: Antibiotic Form Patient Language: Icelandic Stand Alone Forms: General Discharge Information Follow-up/Referrals: Kane Sandhu DO [Primary Care Provider] - (Patient need to see primary care doctor in 1 week) Discharge Medications: New amoxicillin-pot clavulanate [Augmentin] 500-125 mg tablet 1 tablet PO Q12H Qty: 6 0RF sodium chloride 1,000 mg tablet,soluble 1,000 mg PO BID Qty: 1 10RF Continued rosuvastatin 20 mg tablet 20 mg PO DAILY Qty: 90 3RF levothyroxine [Levo-T] 50 mcg tablet 50 mcg PO DAILY Qty: 90 2RF Discontinued lisinopril 20 mg tablet 20 mg PO DAILY Qty: 90 3RF Date of admission: 05/28/25 09:30 Primary Care Provider: Kane Sandhu Admitting Provider: Mayco Mei Attending physician on admission: Mayco Mei Condition: Stable
[2025-05-28 12:00] VITALS: PULSE 63
== END 2025-05-28 12:40 | disposition home or self-care (01) | DRG 641 ==
LOC: ANHED 05-27 04:15 → ANH3MEDSUR 05-27 04:58 → ANH2MED 05-27 15:12
PROVIDERS: Family Medicine; Admitting Provider Internal Medicine; Emergency Provider Physician Assistant; PCP Internal Medicine; Visit Provider Hospitalist
DX: E86.0 Dehydration (principal); N39.0 Urinary tract infection, site not specified; E87.1 Hypo-osmolality and hyponatremia; I10 Essential (primary) hypertension; E87.5 Hyperkalemia; E78.5 Hyperlipidemia, unspecified; E03.9 Hypothyroidism, unspecified; E78.00 Pure hypercholesterolemia, unspecified; K21.9 Gastro-esophageal reflux disease without esophagitis; F17.210 Nicotine dependence, cigarettes, uncomplicated
CPT/HCPCS: 36415; 74177; 80048; 80053; 81001; 83605; 83690; 83735; 85025; 85027; 87040; 87086; 87186; 96361; 96366; 96374; 96375; 99285; A9270; G0378; J0696; J2405; J7030; J7120; Q9967

== ENCOUNTER 2025-11-11 14:16 | Outpatient (CLI) | payer MEDICARE, OTHER, SELFPAY ==
--- NOTE | ~2025-11-11 | XR_ITS ---
EXAM/PROCEDURE: XR barium swallow modified HISTORY: R13.10 - Dysphagia, unspecified COMPARISON: None available. TECHNIQUE: Modified barium swallow Fluoroscopy time: 1.0 minutes DAP: 0.534 Foster per square centimeter Number of images: 1 IMPRESSION: No aspiration observed. See also speech therapist's note for complete evaluation. Reviewed, dictated and finalized at location A. ISH MEDICAL INTERPRETER IMPRESSION: No aspiration observed. See also speech therapist's note for complete evaluatio n.
--- NOTE | 2025-11-11 15:39 | REHSTMBS ---
Assessment and note entered by Becki Lacy, TUBE MACHINE OPERATOR Modified Barium Swallow Evaluation Feeding Type Recommended Oral Food Consistency Regular, Easy to Chew (7) Liquid Consistency Thin (0) ST Clinical Summary The patient is a 75 year old female referred by her physician for MBS secondary reported coughing with meals. The patient is unable to identify a specific consistency that may contribute to or elicit coughing episodes and states it does not happen all the time. The patient was positioned in a lateral view and presented the following consistencies: 5cc/tsp thin liquid barium, cup trials thin liquid barium, pudding mixed with barium paste, and cracker coated with barium paste. Oral Stage: Oral preparation and transit was viewed to be timely for all consistencies. Pharyngeal Stage: When presented all the above consistencies swallow initiation was completed in a timely manner without viewed aspiration or penetration. When presented cup trials of thin liquid barium the patient was noted to have mild residual remaining within the vallecula following the swallow secondary to reduced lingual pressure. However, with cues to complete a repeat swallow the patient was able to clear the majority of remaining residual. Also when alternating bites and drinks the patient was successful in clearing residual within the vallecula. No viewed aspiration or penetration. Results and recommendations were reviewed with the patient and family following completion of the MBS. Recommend: 1. Regular Diet / Level 7 2. Thin Liquid / Level 0 3. Repeat swallow with drinks of liquid or Alternate bites and drinks. Thank you for the consult.
--- OUTSIDE RECORDS SUMMARY | 2025-11-11 17:11 | XMS_ITS ---
Author Organization Unknown ENCOUNTERS Encounter Performer Location Date Diagnosis Diagnosis Status Outpatient Kane Sandhu [facility] [address] [place] [address] [id number] Inpatient Luda Cuba [facility] [address] [place] [address] [id number] [facility] [facility] [address] [place] [address] [id number] Pre Admit [facility] [address] [place] [address] [phone] Emergency [facility] [address] [place] [address] [id number] PAT Outpatient [facility] [address] [place] [address] [id number] [place] *Note: Encounters from your own facility or health system may be excluded. Allergies, Adverse Reactions, Alerts Allergen Type Severity Identification Date Medications Name Date Quantity Days Supplied GPI Number
== END 2025-11-11 14:17 | disposition home or self-care (01) ==
PROVIDERS: PCP Internal Medicine; Visit Provider Internal Medicine
DX: R13.10 Dysphagia, unspecified (principal)
CPT/HCPCS: 74230; 92611